=== PATIENT | female | born 1950 | race Caucasian/White ===

== ENCOUNTER → 2018-07-09 10:31 | Outpatient (CLI) | payer BC, SELFPAY ==
[2018-07-09 11:50] LABS: Basophils % 0.6 % (0.1-2.0); Eosinophils # 0.1 K/mm3 (0.0-0.4); Hemoglobin 15.8 g/dL (12.2-16.2); Lymphocytes # 2.1 K/mm3 (0.7-4.5); Lymphocytes % 38.9 K/mm3 (10-50); Mean Corpuscular HGB Conc 33.6 g/dL (31.8-35.4); Mean Corpuscular Hemoglobin 30.3 pg (27.0-31.2); Mean Platelet Volume 8.1 fl (7.4-10.4); Monocytes # 0.3 K/mm3 (0.1-1.0); Monocytes % 5.3 % (1.7-9.3); Neutrophils # 2.9 K/mm3 (1.8-7.8); Neutrophils % 54.2 % (37.0-80.0); Platelet Count 185 K/mm3 (142-424); Red Blood Count 5.22 M/mm3 (4.20-5.40); Red Cell Distribution Width 12.7 % (11.5-17.5); White Blood Count 5.3 K/mm3 (4.8-10.8)
[2018-07-09 12:29] LABS: Alanine Aminotransferase 35 U/L (12-78); Albumin Level 4.4 gm/dL (3.4-5.0); Albumin/Globulin Ratio 1.5 (1.1-1.8); Alkaline Phosphatase 76 U/L (46-116); Anion Gap 14.5 mEq/L (5-15); Aspartate Amino Transferase 19 U/L (15-37); Bilirubin,Total 0.6 mg/dL (0.2-1.0); Blood Urea Nitrogen 15 mg/dL (7-18); Calcium 9.8 mg/dL (8.5-10.1); Carbon Dioxide 29 mmol/L (21.0-32.0); Chloride 103 mmol/L (98-107); Chol/HDL Ratio 4.8 (1-3.5); Cholesterol 203 mg/dL (140-200); Estimated Glomerular Filt Rate 72 ml/min (>60); GFR (African American) 87 ML/MIN (>60); Globulin 2.9 gm/dl (1.3-3.2); Glucose 96 mg/dL (74-106); HDL Cholesterol 42 mg/dL (29-89); LDL Cholesterol 112 mg/dL (0-130); Potassium 4.5 mmoL/L (3.5-5.1); Sodium 142 mmol/L (136-145); Total Protein,Serum 7.3 gm/dL (6.4-8.2); Triglycerides 247 mg/dL (30-200); VLDL Cholesterol 49 mg/dL (0-40)
== END ==
PROVIDERS: PCP Internal Medicine Adolescent Medicine; Visit Provider Internal Medicine Adolescent Medicine
DX: E78.5 Hyperlipidemia, unspecified (principal); J43.1 Panlobular emphysema
CPT/HCPCS: 36415; 80053; 80061; 85025

== ENCOUNTER → 2018-07-15 09:42 | Outpatient (CLI) | payer BC, SELFPAY ==
--- NOTE | 2018-07-15 09:47 | XR_ITS ---
XR DEXA axial skeleton HISTORY: ITS.REASON: MENOPAUSAL ORDERING PHYSICIAN: Perez Christianson MD PATIENT AGE: 68 years COMPARISON: None FINDINGS: The BMD measured at the AP Spine L1-L4 is 0.869 g/cm squared with a T score of -2.6. This is considered Osteoporotic according to the World Health Organization criteria. Fracture risk is High. Treatment is advised. Mean hip density has a T score of -2.4 IMPRESSION: Osteoporosis with high fracture risk. Recommend treatment and follow-up exam in one year to monitor response to treatment
--- NOTE | 2018-07-15 09:47 | MM_ITS ---
MM Dig screening mamm BI w/CAD CAD Screening COMPARISON: Digital mammograms 08/23/2015 and 11/20/2016 INDICATION: There is a history of breast cancer patient's aunt. This been previous biopsy right breast for benign disease. TECHNIQUE: Standard CC and MLO images were obtained. R2 CAD reviewed. FINDINGS: Scattered fibro glandular densities are seen throughout both breasts. There are stable tiny nodular densities left breast, there is a biopsy clip right breast. There is a benign-appearing calcification right breast. There is no suspicious lesion and no suspicious microcalcifications. IMPRESSION: Fibrofatty parenchyma with no suspicious lesion seen BI-RADS Category: 2 Benign Finding(s) RECOMMENDED FOLLOW-UP: 1YR - 1 YEAR FOLLOW-UP (A letter has been sent to the patient regarding results of the study.)
== END ==
PROVIDERS: Family Provider Internal Medicine Adolescent Medicine; PCP Internal Medicine Adolescent Medicine; Visit Provider Internal Medicine Adolescent Medicine
DX: Z12.31 Encounter for screening mammogram for malignant neoplasm of breast (principal); Z13.820 Encounter for screening for osteoporosis; Z78.0 Asymptomatic menopausal state
CPT/HCPCS: 77067; 77080

== ENCOUNTER 2018-08-03 09:54 | Outpatient (CLI) | payer BC, SELFPAY ==
[2018-08-03 10:00] VITALS: BP 137/79; PULSE 61; RESP 18; TEMP 36.6; O2SAT 98
[2019-01-31 09:57] VITALS: BMI 23.3
== END 2018-08-03 10:30 | disposition home or self-care (01) ==
LOC: INF 09:54
PROVIDERS: Family Provider Internal Medicine Adolescent Medicine; PCP Internal Medicine Adolescent Medicine; Visit Provider Internal Medicine Adolescent Medicine
DX: M81.0 Age-related osteoporosis without current pathological fracture (principal)
CPT/HCPCS: 96372; J0897

== ENCOUNTER 2019-02-24 10:48 | Outpatient (CLI) | payer MEDICARE, SELFPAY ==
[2019-02-24 11:10] VITALS: BP 143/77; PULSE 63; RESP 18; TEMP 36.6; O2SAT 99
== END 2019-02-24 11:30 | disposition home or self-care (01) ==
LOC: INF 10:50
PROVIDERS: PCP Internal Medicine Adolescent Medicine; Visit Provider Internal Medicine Adolescent Medicine
DX: M81.0 Age-related osteoporosis without current pathological fracture (principal)
CPT/HCPCS: 96372; J0897

== ENCOUNTER → 2019-05-11 12:12 | Outpatient (CLI) | payer MEDICARE, SELFPAY ==
[2019-05-11 12:32] LABS: Basophils % 0.6 % (0.1-2.0); Eosinophils # 0.1 K/mm3 (0.0-0.4); Eosinophils % 0.8 % (0.1-12.0); Hematocrit 50.3 % (37.0-47.0); Hemoglobin 15.9 g/dL (12.2-16.2); Lymphocytes # 2.8 K/mm3 (0.7-4.5); Lymphocytes % 38.5 % (10-50); Mean Corpuscular HGB Conc 31.5 g/dL (31.8-35.4); Mean Corpuscular Hemoglobin 29.7 pg (27.0-31.2); Mean Corpuscular Volume 94.3 fl (81-99); Mean Platelet Volume 8.4 fl (7.4-10.4); Monocytes # 0.3 K/mm3 (0.1-1.0); Monocytes % 4.5 % (1.7-9.3); Neutrophils % 55.6 % (37.0-80.0); Platelet Count 228 K/mm3 (142-424); Red Blood Count 5.33 M/mm3 (4.20-5.40); Red Cell Distribution Width 13.5 % (11.5-17.5); White Blood Count 7.2 K/mm3 (4.8-10.8)
[2019-05-11 14:36] LABS: Alanine Aminotransferase 38 U/L (12-78); Albumin Level 4.6 gm/dL (3.4-5.0); Albumin/Globulin Ratio 1.5 (1.1-1.8); Alkaline Phosphatase 69 U/L (46-116); Anion Gap 17.7 mEq/L (5-15); Aspartate Amino Transferase 22 U/L (15-37); Bilirubin,Total 0.6 mg/dL (0.2-1.0); Blood Urea Nitrogen 14 mg/dL (7-18); Calcium 9.9 mg/dL (8.5-10.1); Carbon Dioxide 27 mmol/L (21.0-32.0); Chloride 101 mmol/L (98-107); Chol/HDL Ratio 4.4 (1-3.5); Cholesterol 215 mg/dL (140-200); Estimated Glomerular Filt Rate 83 ml/min (>60); GFR (African American) 101 ML/MIN (>60); Globulin 3.1 gm/dl (1.3-3.2); Glucose 87 mg/dL (74-106); HDL Cholesterol 49 mg/dL (29-89); LDL Cholesterol 119 mg/dL (0-130); Potassium 4.7 mmoL/L (3.5-5.1); Sodium 141 mmol/L (136-145); Total Protein,Serum 7.7 gm/dL (6.4-8.2); Triglycerides 234 mg/dL (30-200); VLDL Cholesterol 47 mg/dL (0-40)
== END ==
PROVIDERS: Visit Provider Internal Medicine Adolescent Medicine
DX: E78.5 Hyperlipidemia, unspecified (principal); F44.1 Dissociative fugue
CPT/HCPCS: 36415; 80053; 80061; 85025

== ENCOUNTER 2019-08-30 09:58 | Outpatient (CLI) | payer MEDICARE, SELFPAY ==
[2019-08-30 09:55] VITALS: BP 160/80; PULSE 64; RESP 18
== END 2019-08-30 10:15 | disposition home or self-care (01) ==
LOC: INF 09:58
PROVIDERS: Visit Provider Internal Medicine Adolescent Medicine
DX: M81.0 Age-related osteoporosis without current pathological fracture (principal)
CPT/HCPCS: 96372; J0897

== ENCOUNTER → 2019-11-01 14:53 | Outpatient (POV) | payer MEDICARE, SELFPAY | PROVIDERS: Visit Provider Dermatology | DX: Z00.00 Encounter for general adult medical examination without abnormal findings (principal) ==

== ENCOUNTER → 2019-11-03 10:24 | Outpatient (CLI) | payer MEDICARE, SELFPAY ==
--- NOTE | 2019-11-03 10:28 | CT_ITS ---
PROCEDURE: CT LUNG SCREENING CLINICAL INDICATION: HX OF NICOTINE DEPENDENCE COMPARISON: No exams were available for comparison TECHNIQUE: The exam was performed on a [employer] Light Speed [address] scanner using 2.90 mGy CTDI. A low dose helical CT CHEST was performed on a multi-detector scanner. All CT scans at the facility use one or more dose reduction, viz: automated exposure control, ma/kV adjustment per patient size (including targeted exams where dose is matched to indication, i.e. head), or iterative reconstruction technique. The LDCT was performed in a facility that meets the criteria for the screening program. Data regarding this exam was submitted to ACR which is an approved registry. The order for this exam indicates that it came as a result of a lung cancer screening counseling shard decision-making visit that included all the elements required of such a visit including smoking cessation. The radiologist interpreting this exam meets the CMS criteria for the LDCT lung cancer screening program. The exam is reported using the Lung-RADS classification scale and reported to the ACR registry. NOTE: This study was performed for the specific purposes of lung cancer screening and is not an alternative to diagnostic chest CT. RADIATION DOSE: CTDI vol(CT dose Index-volume) = 2.90mG DLP (Dose Length Product) = 98.73 mGcm FINDINGS: 6 mm nodules present in the left apex. This may contain some minimal central calcification. Six-month follow-up suggested. OTHER FINDINGS: Centrilobular emphysema. Old granulomatous disease. Coronary artery calcification. Cholelithiasis IMPRESSION: Lung rads category 3 probably benign. Recommend six-month CT follow-up Dictated by: Ramsey Ramirez MD 11/09/2019 09:09 Electronically signed by Ramsey Ramirez MD in [place] 11/09/2019 09:11
--- NOTE | 2019-11-03 10:29 | MM_ITS ---
PROCEDURE: MM DIG SCREENING MAMM BI W/CAD Patient Age:69Y CLINICAL INDICATION: SCREENING 69-year-old. No hormones but no new complaints.. Benign stereotactic biopsy deep right breast. Family history paternal aunt with breast cancer COMPARISON: [facility] from 05/04/2014 [facility] from 08/23/2015 [facility] W/CAD from 11/20/2016 [facility] MM Dig screening mamm BI w/CAD from 07/15/2018 TECHNIQUE: Standard CC and MLO images were obtained. R2 CAD reviewed. FINDINGS: Low-density breast to less fatty replacement with no significant or suspicious new areas of concern either breast. CAD highlights no new areas of concern either.. Right breast. No new areas of concern Previous biopsy deep axillary right breast a small metallic marker here. With stable small ovoid lymph node just anterior to the biopsy clip at upper-outer quadrant right breast again observed Left breast: No changes. Again a stable small intramammary node at the far lateral left breast is noted. IMPRESSION: Stable bilateral mammogram with no significant new findings. Bilateral follow-up 1 year. BI-RAD Category: 2 Benign Finding(s) FOLLOW-UP: 1YR 1 Year Follow-up the (A letter has been sent to the patient regarding results of the study.) Dictated by: Cooper Pond MD 11/04/2019 08:44 Electronically signed by Cooper Pond MD in [place] 11/04/2019 08:44
== END ==
PROVIDERS: PCP Internal Medicine Adolescent Medicine; Visit Provider Internal Medicine Adolescent Medicine
DX: Z87.891 Personal history of nicotine dependence (principal); Z12.2 Encounter for screening for malignant neoplasm of respiratory organs; Z12.31 Encounter for screening mammogram for malignant neoplasm of breast
CPT/HCPCS: 77067

== ENCOUNTER 2020-02-29 09:50 | Outpatient (CLI) | payer MEDICARE, SELFPAY ==
[2020-02-29 10:25] VITALS: BP 154/73; PULSE 68; RESP 18; TEMP 36.6; O2SAT 99
== END 2020-02-29 10:40 | disposition home or self-care (01) ==
LOC: INF 09:58
PROVIDERS: Visit Provider Internal Medicine Adolescent Medicine
DX: M81.0 Age-related osteoporosis without current pathological fracture (principal); Z92.29 Personal history of other drug therapy
CPT/HCPCS: 96372; J0897

== ENCOUNTER 2020-03-12 10:47 | Emergency (ER) | payer MEDICARE, SELFPAY ==
[2020-03-12 10:48] VITALS: BP 166/81; PULSE 72; RESP 20; TEMP 36.8; O2SAT 99; BMI 23.2
--- NOTE | 2020-03-12 11:02 | HMH.EDGENADL ---
ED Disposition Clinical Impression: Dyspepsia Disposition: Home, Self-Care Condition on Discharge: Good Instructions: DI for Gastroesophageal Reflux Disease (GERD), DI for Gastritis Prescriptions: Sucralfate [Carafate 1gm/10mL Susp] 1 gm PO QID 7 Days udc Prescription Printed Referrals: Perez Christianson MD [Primary Care Provider] - 3 days - Critical Care Critical Care Time: No Attestation: On 03/12/20, the high probability of a clinically significant, sudden or life threatening deterioration of the following system(s) required my full and direct attention, intervention and personal management. The time I documented below is in addition to time spent performing reported procedures but includes the following listed in this critical care notation. Medical Decision Making - Medical Records Medical records reviewed: Yes: I reviewed the patient's medical records. - Carlos Inquiry Pt receiving controlled substance: No Vital Signs: 03/12/20 10:48 03/12/20 11:30 Temperature 98.3 F Temperature Source Oral Pulse Rate [Right] 72 62 Respiratory Rate 20 20 Blood Pressure [Right Arm] 166/81 H 158/88 H Blood Pressure Mean [Right Arm] 109 111 Blood Pressure Source [Right Arm] Automatic Cuff Blood Pressure Position [Right Arm] Supine 02 Sat by Pulse Oximetry 99 96 Oxygen Delivery Method Room Air - Lab Data Lab Results 03/12/20 11:15: WBC 10.9 H, RBC 5.36, Hgb 16.2, Hct 49.2 H, MCV 91.8, MCH 30.3, MCHC 33.0, RDW 13.0, Plt Count 241, MPV 8.2, Neut % (Auto) 75.3, Lymph % (Auto) 18.3, [place] % (Auto) 5.5, Eos % (Auto) 0.2, Baso % (Auto) 0.6, Neut # (Auto) 8.2 H, Lymph # (Auto) 2.0, [place] # (Auto) 0.6, Eos # (Auto) 0.0, Baso # (Auto) 0.1 03/12/20 11:15: Lipase 70 03/12/20 11:15: Sodium 140, Potassium 3.3 L, Chloride 102, Carbon Dioxide 27, Anion Gap 14.3, BUN 10, Creatinine 0.60, Estimated Creat Clear 51, Estimated GFR 99, Est GFR ( Amer) 120, Glucose 129 H, Calcium 9.9, Total Bilirubin 0.7, AST 36, ALT 33, Alkaline Phosphatase 66, Troponin I < 0.01, Total Protein 8.1, Albumin 4.9, Globulin 3.2, Albumin/Globulin Ratio 1.5 Result diagrams: 03/12/20 11:15 03/12/20 11:15 Orders (Tests/Meds): ED MEDICATIONS Generic Name Dose Route Start Last Admin Trade Name Freq PRN Reason Stop Dose Admin Sodium Chloride 1,000 mls @ 999 mls/hr 03/12/20 11:00 03/12/20 11:17 Sod Chlor 0.9% 1000ml Bag IV 03/12/20 12:00 999 mls/hr .Q1H1M KIKA Administration Discontinued Medications Generic Name Dose Route Start Last Admin Trade Name Freq PRN Reason Stop Dose Admin Belladonna Alkaloids 60 ml 03/12/20 11:04 03/12/20 11:17 Gi Cocktail 60ml Udc PO 03/12/20 11:05 60 ml ONCE ONE Administration Ondansetron HCl 4 mg 03/12/20 10:55 03/12/20 11:17 Zofran 4mg/2ml Vial IV 03/12/20 10:56 4 mg ONCE ONE Administration ORDERS Category Date Time Status Troponin I Q3H Lab 03/12/20 14:15 Ordered Troponin I Q3H Lab 03/12/20 17:15 Ordered Urinalysis and Microscopic Stat Lab 03/12/20 10:55 Ordered - ECG Data Tracing #1 G at 1111 shows a sinus rhythm with a rate of 69. No acute ST segment elevation or depression. Intraventricular conduction delay, right bundle branch block. Normal QTC and MD. EKG interpreted by me. Medical Decision Narrative: She is feeling much better after GI cocktail. Patient has no vomiting here. She has labs that are reassuring with no signs of biliary obstruction, pancreatitis. EKG and troponin would not suggest ACS and patient has no chest pain. She has had GERD pain like this before and I suspect that this is the cause now, or possibly gastritis as she is not taking famotidine as prescribed. I recommended taking her famotidine as prescribed and will prescribe Carafate as well for a week in the event that this helps her. Follow-up with primary care provider in 2 to 3 days for reevaluation. No urinary symptoms, unlikely UTI. No change in bowel habits, u
--- NOTE | 2020-03-12 11:11 | ECG_ITS ---
APPROVED REPORT Exam: Resting ECG HR:69 bpm ECG Measurements Heart Rate 69 AXES QRSd 134 QRS 66 QT 420 T -4 QTc 450 <Conclusion> Sinus rhythm with First Degree AV Block-NM 380ms Right bundle branch block Motion artifact Abnormal ECG Electronically signed by : Hermelindo Wellington, 03/13/2020 14:39:39
[2020-03-12 11:25] LABS: Basophils # 0.1 K/mm3 (0-0.2); Basophils % 0.6 % (0.1-2.0); Eosinophils % 0.2 % (0.1-12.0); Hematocrit 49.2 % (37.0-47.0); Hemoglobin 16.2 g/dL (12.2-16.2); Lymphocytes % 18.3 % (10-50); Mean Corpuscular Hemoglobin 30.3 pg (27.0-31.2); Mean Corpuscular Volume 91.8 fl (81-99); Mean Platelet Volume 8.2 fl (7.4-10.4); Monocytes # 0.6 K/mm3 (0.1-1.0); Monocytes % 5.5 % (1.7-9.3); Neutrophils # 8.2 K/mm3 (1.8-7.8); Neutrophils % 75.3 % (37.0-80.0); Platelet Count 241 K/mm3 (142-424); Red Blood Count 5.36 M/mm3 (4.20-5.40); White Blood Count 10.9 K/mm3 (4.8-10.8)
[2020-03-12 11:30] VITALS: BP 158/88; PULSE 62; RESP 20; O2SAT 96
[2020-03-12 11:34] LABS: Chloride 102 mmol/L (98-107); Potassium 3.3 mmoL/L (3.5-5.1); Sodium 140 mmol/L (136-145)
[2020-03-12 11:36] LABS: Alanine Aminotransferase 33 U/L (12-78); Alkaline Phosphatase 66 U/L (38-126); Aspartate Amino Transferase 36 U/L (14-36); Bilirubin,Total 0.7 mg/dl (0.2-1.3); Blood Urea Nitrogen 10 mg/dl (7-17); Creatinine Clearance Estimated 51 mL/min (50-200); Estimated Glomerular Filt Rate 99 ml/min (>60); GFR (African American) 120 ML/MIN (>60); Lipase 70 U/L (23-300)
[2020-03-12 11:37] LABS: Albumin Level 4.9 g/dl (3.5-5.0); Albumin/Globulin Ratio 1.5 (1.1-1.8); Anion Gap 14.3 mEq/L (5-15); Calcium 9.9 mg/dl (8.4-10.2); Carbon Dioxide 27 mmol/L (22.0-30.0); Globulin 3.2 g/dL (1.3-3.2); Glucose 129 mg/dl (74-100); Total Protein,Serum 8.1 g/dl (6.3-8.2)
[2020-03-12 11:54] LABS: Troponin I < 0.01 ng/ml (0.00-0.034)
[2020-03-12 12:00] VITALS: BP 169/78; PULSE 90; RESP 22; O2SAT 94
[2020-03-12 12:23] VITALS: BP 165/85; PULSE 87; RESP 20; TEMP 36.8; O2SAT 98
== END 2020-03-12 12:25 | disposition home or self-care (01) ==
PROVIDERS: Emergency Provider Emergency Medicine; PCP Internal Medicine Adolescent Medicine
DX: R10.13 Epigastric pain (principal); K21.9 Gastro-esophageal reflux disease without esophagitis; E78.5 Hyperlipidemia, unspecified; F17.210 Nicotine dependence, cigarettes, uncomplicated; I25.10 Atherosclerotic heart disease of native coronary artery without angina pectoris; Z90.79 Acquired absence of other genital organ(s)
CPT/HCPCS: 80053; 83690; 84484; 85025; 93005; 96365; 96375; 99284; J2405

== ENCOUNTER 2020-08-31 14:05 | Outpatient (CLI) | payer MEDICARE, SELFPAY ==
[2020-08-31 14:20] VITALS: BP 139/66; PULSE 71; RESP 18; O2SAT 97
== END 2020-08-31 14:35 | disposition home or self-care (01) ==
LOC: INF 14:14
PROVIDERS: Visit Provider Internal Medicine Adolescent Medicine
DX: M81.0 Age-related osteoporosis without current pathological fracture (principal); Z92.29 Personal history of other drug therapy
CPT/HCPCS: 96372; J0897

== ENCOUNTER → 2021-02-04 11:36 | Outpatient (CLI) | payer MEDICARE, SELFPAY ==
[2021-02-04 12:15] LABS: Basophils # 0.1 K/mm3 (0-0.2); Basophils % 1.2 % (0.1-2.0); Eosinophils # 0.1 K/mm3 (0.0-0.4); Eosinophils % 1.4 % (0.1-12.0); Hematocrit 50.8 % (37.0-47.0); Hemoglobin 16.4 g/dL (12.2-16.2); Lymphocytes # 2.7 K/mm3 (0.7-4.5); Lymphocytes % 42.9 % (10-50); Mean Corpuscular HGB Conc 32.3 g/dL (31.8-35.4); Mean Corpuscular Hemoglobin 29.8 pg (27.0-31.2); Mean Corpuscular Volume 92.3 fl (81-99); Mean Platelet Volume 8.2 fl (7.4-10.4); Monocytes # 0.4 K/mm3 (0.1-1.0); Monocytes % 5.6 % (1.7-9.3); Neutrophils # 3.1 K/mm3 (1.8-7.8); Neutrophils % 48.9 % (37.0-80.0); Platelet Count 222 K/mm3 (142-424); Red Cell Distribution Width 13.3 % (11.5-17.5); White Blood Count 6.3 K/mm3 (4.8-10.8)
[2021-02-04 12:34] LABS: Chloride 107 mmol/L (98-107); Potassium 5.4 mmoL/L (3.5-5.1); Sodium 141 mmol/L (136-145)
[2021-02-04 12:36] LABS: Blood Urea Nitrogen 14 mg/dl (7-17); Estimated Glomerular Filt Rate 83 ml/min (>60); GFR (African American) 101 ML/MIN (>60)
[2021-02-04 12:37] LABS: Alanine Aminotransferase 38 U/L (12-78); Albumin Level 5.5 g/dl (3.5-5.0); Albumin/Globulin Ratio 2.2 (1.1-1.8); Alkaline Phosphatase 66 U/L (38-126); Anion Gap 11.4 mEq/L (5-15); Aspartate Amino Transferase 39 U/L (14-36); Bilirubin,Total 0.8 mg/dl (0.2-1.3); Calcium 10.6 mg/dl (8.4-10.2); Carbon Dioxide 28 mmol/L (22.0-30.0); Chol/HDL Ratio 4.8 (1-3.5); Cholesterol 243 mg/dl (140-200); Globulin 2.5 g/dL (1.3-3.2); Glucose 106 mg/dl (74-100); HDL Cholesterol 51 mg/dl (40-60); Triglycerides 387 mg/dl (30-150); VLDL Cholesterol 77 mg/dL (0-40)
[2021-02-04 12:49] LABS: Direct LDL Cholesterol 134.68 mg/dL (100-129)
== END ==
PROVIDERS: Visit Provider Internal Medicine Adolescent Medicine
DX: E78.5 Hyperlipidemia, unspecified (principal); J43.1 Panlobular emphysema
CPT/HCPCS: 36415; 80053; 80061; 85025

== ENCOUNTER → 2021-02-08 10:14 | Outpatient (CLI) | payer MEDICARE, SELFPAY ==
--- NOTE | 2021-02-08 10:17 | MM_ITS ---
PROCEDURE: MM DIG SCREENING MAMM BI W/CAD Digital Breast Tomosynthesis Included CLINICAL INDICATION: SCREENING COMPARISON: [facility] MM Dig screening mamm BI w/CAD from 07/15/2018 MG MM DIG SCREENING MAMM BI W/CAD from 11/03/2019 TECHNIQUE: Standard CC and MLO images and 3D Tomosynthesis was obtained. R2 CAD reviewed. FINDINGS: The breasts are composed of scattered fibroglandular tissue. Bilateral intramammary lymph nodes are noted. Axillary lymph nodes are noted. Stereotactic biopsy marker in the right breast. Mole markers are noted bilaterally. No dominant mass lesion, suspicious calcification or architectural distortion noted IMPRESSION: No suspicious findings. BI-RAD Category: 2 Benign Finding(s) FOLLOW-UP: 1YR 1 Year Follow-up if no clinically palpable abnormality. (A letter has been sent to the patient regarding results of the study.) Dictated by: Claudine Wilson 02/15/2021 13:37 Claudine Wilson in [place] 02/15/2021 13:37
== END ==
PROVIDERS: PCP Internal Medicine Adolescent Medicine; Visit Provider Internal Medicine Adolescent Medicine
DX: Z12.31 Encounter for screening mammogram for malignant neoplasm of breast (principal)
CPT/HCPCS: 77063; 77067

== ENCOUNTER → 2021-02-15 08:11 | Outpatient (CLI) | payer MEDICARE, SELFPAY ==
--- NOTE | 2021-02-15 08:14 | CT_ITS ---
PROCEDURE: CT LUNG SCREENING CLINICAL INDICATION: H/O NICOTINE DEPENDENCE COMPARISON: CR XR HAND LT MIN 3V from 08/11/[address] LUNG SCREENING from 11/03/2019 TECHNIQUE: The exam was performed on a [employer] Light Speed [address] scanner using 2.90 mGy CTDI. A low dose helical CT CHEST was performed on a multi-detector scanner. All CT scans at the facility use one or more dose reduction, viz: automated exposure control, ma/kV adjustment per patient size (including targeted exams where dose is matched to indication, i.e. head), or iterative reconstruction technique. The LDCT was performed in a facility that meets the criteria for the screening program. Data regarding this exam was submitted to ACR which is an approved registry. The order for this exam indicates that it came as a result of a lung cancer screening counseling shard decision-making visit that included all the elements required of such a visit including smoking cessation. The radiologist interpreting this exam meets the CMS criteria for the LDCT lung cancer screening program. The exam is reported using the Lung-RADS classification scale and reported to the ACR registry. NOTE: This study was performed for the specific purposes of lung cancer screening and is not an alternative to diagnostic chest CT. RADIATION DOSE: CTDI vol(CT dose Index-volume) = 2.90mG DLP (Dose Length Product) = mGcm FINDINGS: 5 millimeter nodule is noted in the left upper lobe, unchanged. Minor subpleural nodularity is noted in the left lower lobe without evidence of focal nodules. There is minor subpleural nodularity noted in the right middle lobe adjacent to the minor fissure, unchanged. Calcified granulomas are noted. Centrilobular emphysematous changes are noted bilaterally. The central tracheobronchial tree is patent. No new focal lung nodules. The heart size is normal. No pericardial effusions. Atherosclerotic vascular calcification of the thoracic aorta and the coronary arteries are noted. Few scattered mediastinal lymph nodes, not significant by size criteria. Calcified grand lymph nodes noted in the right hilum. Calcified gallstones are noted. No pericholecystic fluid or gallbladder wall thickening. Multiple calcifications in the liver and spleen which may be secondary to prior granulomatous disease. Bulky bilateral adrenal glands, may represent adrenal hyperplasia. This is unchanged compared to the study a prior study. Focal heterogeneous density of the right kidney is noted, incompletely evaluated on the current unenhanced low-dose CT. Minor degenerative changes of the visualized thoracic spine. The visualized thyroid gland is unremarkable. IMPRESSION: Lung-RADS Category 2 Benign Appearance or Behavior Follow-up: Follow-up as clinically indicated. No follow-up is recommended as per modified Fleischner criteria. Focal hypodensity in the right kidney is noted, incompletely evaluated and visualized on the current study. Ultrasound of the kidneys is recommended for further evaluation in the 1st instance. Calcified gallstones. Dictated by: Claudine Wilson 02/15/2021 11:50 Claudine Wilson in [place] 02/15/2021 11:50
--- NOTE | 2021-02-15 08:15 | XR_ITS ---
PROCEDURE: XR DEXA AXIAL SKELETON CLINICAL HISTORY: OSTEOPOROSIS COMPARISON: CR DEXAAX XR DEXA axial skeleton from 07/15/2018 FINDINGS: The right hip BMD is 0.756 grams/centimeter square with a T-score of -1.5. The left hip BMD is 0.692 grams/centimeter square with a T-score of -2.0. The lumbar spine BMD is 0.942 grams/centimeters square with a T-score of -1.0. IMPRESSION: This patient is considered osteopenic according to the World Health Organization criteria. Bone density is between 10 and 25 percent below young normal. Fracture risk is moderate. Treatment is advised. Based on these results a follow-up exam is recommended in 2 year. Dictated by: Claudine Wilson 02/15/2021 16:53 Claudine Wilson in [place] 02/15/2021 16:53
== END ==
PROVIDERS: PCP Internal Medicine Adolescent Medicine; Visit Provider Internal Medicine Adolescent Medicine
DX: Z87.891 Personal history of nicotine dependence (principal); Z12.2 Encounter for screening for malignant neoplasm of respiratory organs; M81.0 Age-related osteoporosis without current pathological fracture
CPT/HCPCS: 71271; 77080

== ENCOUNTER 2021-03-01 09:55 | Outpatient (CLI) | payer MEDICARE, SELFPAY ==
[2021-03-01 10:10] VITALS: BP 147/75; PULSE 64; RESP 18; TEMP 36.8; O2SAT 98
== END 2021-03-01 10:25 | disposition home or self-care (01) ==
LOC: INF 09:59
PROVIDERS: PCP Internal Medicine Adolescent Medicine; Visit Provider Internal Medicine Adolescent Medicine
DX: M85.89 Other specified disorders of bone density and structure, multiple sites (principal)
CPT/HCPCS: 96372

== ENCOUNTER → 2021-07-02 09:17 | Outpatient (CLI) | payer MEDICARE, SELFPAY ==
[2021-07-02 10:47] LABS: Chloride 104 mmol/L (98-107); Potassium 5.1 mmoL/L (3.5-5.1); Sodium 142 mmol/L (136-145)
[2021-07-02 10:49] LABS: Alanine Aminotransferase 37 U/L (12-78); Alkaline Phosphatase 72 U/L (38-126); Aspartate Amino Transferase 41 U/L (14-36); Bilirubin,Total 0.6 mg/dl (0.2-1.3); Blood Urea Nitrogen 14 mg/dl (7-17); Estimated Glomerular Filt Rate 71 ml/min (>60); GFR (African American) 86 ML/MIN (>60)
[2021-07-02 10:50] LABS: Albumin/Globulin Ratio 2.1 (1.1-1.8); Anion Gap 13.1 mEq/L (5-15); Calcium 10.4 mg/dl (8.4-10.2); Carbon Dioxide 30 mmol/L (22.0-30.0); Chol/HDL Ratio 3.4 (1-3.5); Cholesterol 169 mg/dl (140-200); Globulin 2.4 g/dL (1.3-3.2); Glucose 120 mg/dl (74-100); HDL Cholesterol 50 mg/dl (40-60); Total Protein,Serum 7.4 g/dl (6.3-8.2); Triglycerides 223 mg/dl (30-150); VLDL Cholesterol 45 mg/dL (0-40)
[2021-07-02 11:01] LABS: Direct LDL Cholesterol 85.01 mg/dL (100-129)
[2021-07-02 11:23] LABS: Basophils # 0.1 K/mm3 (0-0.2); Basophils % 1.1 % (0.1-2.0); Eosinophils # 0.1 K/mm3 (0.0-0.4); Eosinophils % 2.4 % (0.1-12.0); Hematocrit 45.9 % (37.0-47.0); Hemoglobin 15.3 g/dL (12.2-16.2); Lymphocytes # 1.9 K/mm3 (0.7-4.5); Lymphocytes % 36.3 % (10-50); Mean Corpuscular HGB Conc 33.2 g/dL (31.8-35.4); Mean Corpuscular Hemoglobin 29.8 pg (27.0-31.2); Mean Corpuscular Volume 89.7 fl (81-99); Mean Platelet Volume 8.1 fl (7.4-10.4); Monocytes # 0.3 K/mm3 (0.1-1.0); Monocytes % 6.5 % (1.7-9.3); Neutrophils # 2.8 K/mm3 (1.8-7.8); Neutrophils % 53.8 % (37.0-80.0); Platelet Count 206 K/mm3 (142-424); Red Blood Count 5.12 M/mm3 (4.20-5.40); Red Cell Distribution Width 13.1 % (11.5-17.5); White Blood Count 5.3 K/mm3 (4.8-10.8)
== END ==
PROVIDERS: Visit Provider Internal Medicine Adolescent Medicine
DX: R03.0 Elevated blood-pressure reading, without diagnosis of hypertension (principal); E78.5 Hyperlipidemia, unspecified
CPT/HCPCS: 36415; 80053; 80061; 85025

== ENCOUNTER → 2021-07-16 10:22 | Outpatient (POV) | payer MEDICARE, SELFPAY | PROVIDERS: Visit Provider Dermatology | DX: Z00.00 Encounter for general adult medical examination without abnormal findings (principal) ==

== ENCOUNTER → 2021-08-13 10:50 | Outpatient (POV) | payer MEDICARE, SELFPAY | PROVIDERS: Visit Provider Dermatology | DX: Z00.00 Encounter for general adult medical examination without abnormal findings (principal) ==

== ENCOUNTER → 2021-09-03 13:04 | Outpatient (POV) | payer MEDICARE, SELFPAY | PROVIDERS: Visit Provider Dermatology | DX: Z00.00 Encounter for general adult medical examination without abnormal findings (principal) ==

== ENCOUNTER 2021-09-04 10:02 | Outpatient (CLI) | payer MEDICARE, SELFPAY ==
[2021-09-04 10:16] VITALS: BP 139/74; PULSE 62; RESP 18; TEMP 36.6; O2SAT 97
== END 2021-09-04 10:44 | disposition home or self-care (01) ==
LOC: INF 10:03
PROVIDERS: PCP Internal Medicine Adolescent Medicine; Visit Provider Internal Medicine Adolescent Medicine
DX: M81.0 Age-related osteoporosis without current pathological fracture (principal)
CPT/HCPCS: 96372; J0897

== ENCOUNTER → 2021-11-08 14:13 | Outpatient (CLI) | payer MEDICARE, SELFPAY | PROVIDERS: PCP Internal Medicine Adolescent Medicine; Visit Provider Nurse Practitioner Family | DX: U07.1 COVID-19 (principal) | CPT/HCPCS: C9803; U0003; U0005 ==

== ENCOUNTER 2021-11-10 10:12 | Outpatient (CLI) | payer MEDICARE, SELFPAY ==
[2021-11-10] VITALS (7 sets, daily range): BP systolic 139–164; BP diastolic 65–81; PULSE 57–95; RESP 18; O2SAT 95–99
== END 2021-11-10 13:00 | disposition home or self-care (01) ==
LOC: INF 10:12
PROVIDERS: PCP Internal Medicine Adolescent Medicine; Visit Provider Internal Medicine Adolescent Medicine
DX: U07.1 COVID-19 (principal); Z23 Encounter for immunization
CPT/HCPCS: 96365

== ENCOUNTER → 2021-12-17 14:23 | Outpatient (POV) | payer MEDICARE, SELFPAY | PROVIDERS: Visit Provider Dermatology | DX: Z00.00 Encounter for general adult medical examination without abnormal findings (principal) ==

== ENCOUNTER → 2022-01-28 12:58 | Outpatient (POV) | payer MEDICARE, SELFPAY | PROVIDERS: Visit Provider Dermatology | DX: Z00.00 Encounter for general adult medical examination without abnormal findings (principal) ==

== ENCOUNTER 2022-11-04 10:00 | Outpatient (RCR) | payer MEDICARE, SELFPAY ==
--- NOTE | 2022-10-24 12:42 | HMH.PTOPWND ---
Rehab Outpt Wound Evaluation Rehab OP Wound Evaluation Start: 10/24/22 12:32 Freq: Status: Active Protocol: Document 10/24/22 12:32 RAMONITA (Rec: 10/24/22 12:42 PHORNESHA [id number]) E-signed By Eric Drew, PT Subjective/History History History This is the initial PT eval for Christine Das 72 yowf who presents with R lateral ankle wound present x ~ 3 wks. She reports tailgate of a truck fell and scraped her leg with reulsting R LE erythema and tenderness shortly after. She was diagnosed with cellulitis and prescribed oral abx and mupirocin topical ointment. She reports less pain now, but remains somewhat tender to palpation in the agustín-wound skin. She reports PMH of HTN. Subjective Subjective Pt with 0/10 pain currently, does c/o mild itching in the agustín-wound area. 2/4 TTP noted to the anterior side of the wound with 1+ pitting edema also noted. Blanchable erythema noted ~2-3 cm in circumference around the wound . No calor noted this date. Wound Eval Wound Right Lateral Ankle Wound Type Abrasion Is This a Chronic Wound Yes Wound Length (cm) 5.0 Wound Width (cm) 1.8 Wound Depth (cm) 0.1 Wound Bed Appearance Eschar Percentage of Eschar (Black) (%) 100 Wound Margins Description Well Defined Surrounding Tissue Appearance Bright Red Edema Type Pitting Edema Degree 1+ Query Text:1+ Trace, Barely Detectable, Rebound 15-30 seconds 2+ Moderate, Slight Indentation, Rebound 10-20 seconds 3+ Deep, Deeper Indentation, Rebound > 30 seconds 4+ Very Deep, Rebound > 60 seconds Drainage Amount None Drainage Odor No Odor Wound Topical Solution/Irrigant Saline Irrigant Primary Dressing Composite Comment optifoam gentle border lite Wound Debridement Method Sharps,Gauze Wound Debridement Amount of Tissue Moderate Removed Wound Debridement Result Healthy Tissue Revealed, Necrotic Tissue Rem
== END 2022-11-04 10:05 | disposition home or self-care (01) ==
LOC: PT 10:00
PROVIDERS: PCP Internal Medicine Adolescent Medicine; Visit Provider Nurse Practitioner Family
DX: L03.115 Cellulitis of right lower limb (principal)
CPT/HCPCS: 97162; 97597

== ENCOUNTER → 2023-02-02 16:54 | Outpatient (CLI) | payer MEDICARE, SELFPAY ==
--- NOTE | 2023-02-02 17:01 | MM_ITS ---
PROCEDURE INFORMATION: Exam: MG Bilateral Screening 3D Mammography Exam date and time: 02/02/2023 4:51 PM Age: 72 years old Clinical indication: Screening mammogram TECHNIQUE: Imaging protocol: Bilateral Screening tomosynthesis and 2D mammography including computer-aided detection (CAD) when performed. COMPARISON: 1. MG MM DIG SCREENING MAMM BI W/CAD 02/08/2021 10:29 AM 2. MG MM DIG SCREENING MAMM BI W/CAD 11/03/2019 10:48 AM 3. MG [facility] MM Dig screening mamm BI w/CAD 07/15/2018 10:15 AM 4. MG [facility]M-SCRE[facility] W/CAD 11/20/2016 8:31 AM FINDINGS: MAMMOGRAPHY: Breast composition: There are scattered areas of fibroglandular density. Mass: 0.7 cm mass within the slightly upper inner anterior left breast should be further assessed with spot views in CC/MLO projection. Ultrasound should also be performed. Architectural distortion: No new or suspicious architectural distortion. Calcifications: No new or suspicious calcifications are present Asymmetric density: No new or suspicious asymmetric density is present Skin thickening: None. Axillary adenopathy: None. IMPRESSION: 0.7 cm mass within the slightly upper inner anterior left breast should be further assessed with spot views in CC/MLO projection. Ultrasound should also be performed. ASSESSMENT: BI-RADS category 0: Incomplete-need additional imaging evaluation
== END ==
PROVIDERS: PCP Internal Medicine Adolescent Medicine; Visit Provider Nurse Practitioner Family
DX: Z12.31 Encounter for screening mammogram for malignant neoplasm of breast (principal)
CPT/HCPCS: 77063; 77067

== ENCOUNTER → 2023-02-24 14:14 | Outpatient (CLI) | payer MEDICARE, SELFPAY ==
--- NOTE | 2023-02-24 14:19 | US_ITS ---
PROCEDURE INFORMATION: Exam: US Left Breast, Complete MG Left Diagnostic Breast Tomosynthesis Exam date and time: 02/24/2023 2:21 PM Age: 73 years old Clinical indication: Callback for additional assessment of 0.7 cm upper inner left breast mass identified on screening mammogram 02/02/2023 TECHNIQUE: Imaging protocol: Complete ultrasound of all four quadrants of the left breast and the retroareolar regions, including ultrasound of the axilla when performed. Left Diagnostic tomosynthesis and 2D mammography including computer-aided detection (CAD) when performed. Unilateral or bilateral exam. COMPARISON: 1. MG MM DIG SCREENING MAMM BI W/CAD 02/02/2023 4:51 PM 2. MG MM DIG SCREENING MAMM BI W/CAD 02/08/2021 10:29 AM 3. MG MM DIG SCREENING MAMM BI W/CAD 11/03/2019 10:48 AM 4. MG [facility] MM Dig screening mamm BI w/CAD 07/15/2018 10:15 AM FINDINGS: MAMMOGRAPHY: In the slightly upper slightly inner anterior left breast about 2.5 cm from the nipple there is a 0.7 cm circumscribed lobulated intermediate density mass. No associated architectural distortion or suspicious calcifications are present ULTRASOUND: In the region of mammographic interest, left 11 o'clock axis 2 cm from the nipple, there is a heterogeneously hypoechoic horizontally oriented mostly circumscribed 0.7 x 0.3 x 0.7 cm mass with posterior acoustic enhancement. This has probably benign features highly suggestive of a complicated cyst but remains mildly suspicious since it is mammographically new. No axillary adenopathy IMPRESSION: Six-month follow-up targeted left breast ultrasound is recommended to assure stability of a suspected 11 o'clock complicated cyst ASSESSMENT: BI-RADS category 3: Probably benign
== END ==
PROVIDERS: PCP Internal Medicine Adolescent Medicine; Visit Provider Nurse Practitioner Family
DX: R92.8 Other abnormal and inconclusive findings on diagnostic imaging of breast (principal)
CPT/HCPCS: 76641; 77061; 77065; G0279

== ENCOUNTER 2023-07-16 11:20 | Day surgery (SDC) | payer MEDICARE, SELFPAY ==
[2023-06-25 09:53] VITALS: BMI 24.3
--- NOTE | 2023-07-16 11:33 | P.PNANES_ITS ---
[facility] Disclaimer: The information contained in this section may have been updated after the patient was seen, as this information can be updated by other users. Medical History Cataract Surgical History History of colonoscopy History of hysterectomy History of tonsillectomy Hx of bladder repair surgery Family History Other Family history of arthritis Family history of cancer Family history of myocardial infarction Social History Smoking Status: Former smoker quit date: 05/15/20 alcohol intake: never substance use type: denies use current occupational status: retired Travel in the last 8 weeks: None household members: spouse housing: house lives independently: No marital status: education level: college service: No caffeine: Yes special maddi needs: No do you feel safe at home: Yes victim of physical abuse: No victim of emotional abuse: No victim of sexual abuse: No would you like helpful sources: No [facility] Anesthesia Checklist Patient Identification Patient Identification: Arm Band and Verbal (Name & ) Structural Data Admitted From: Home Planned Operative Procedure/s: colonoscopy Consent for Planned Operative Procedure(s) Verified: Yes Verified Documents: Surgical Consent NPO Status Verified Time NPO: 00:00 Airway Assessment Mallampati Score:: Class I C-Spine Mobility Assessed: Yes TMJ Mobility Assessed: Yes Dentition: Edentulous Neurological Assessment Level of Consciousness: Awake and Alert Hx Seizures: No Anesthesia Plan Anesthesia Risk discussed: Yes ASA Class: II Anesthesia Type: IV sedation
[2023-07-16 11:38] VITALS: BP 132/61; PULSE 68; RESP 18; TEMP 36.7; O2SAT 98
[2023-07-16 11:48] VITALS: O2SAT 98
--- NOTE | 2023-07-16 12:10 | HMH.SCOPE ---
Procedure: Date: 07/16/23 Patient Date of :: 1950 Procedure Performed:: Diagnostic colonoscopy Indications:: Chronic diarrhea, history of polyps Performing Provider:: Carolee Cardenas MD Referring Provider:: carrie Christianson MD Sedation:: Propofol Procedure:: After placing the patient in the left lateral decubitus position, the colonoscopy was gently inserted into the rectum and under direct visualization advanced to the cecum which was identified by transillumination in the right lower quadrant, identification of the ileocecal valve, appendiceal orifice, and cecal strap. Color, texture, mucosa, and anatomy of the colon were carefully examined with the scope. Findings:: Anal canal: normal Rectum: normal Sigmoid colon: normal without polyps or inflammatory changes, scattered diverticuli noted Descending colon: normal without polyps or inflammatory changes Splenic flexure: normal Transverse colon: normal without polyps or inflammatory changes Hepatic flexure: normal Ascending colon: normal without polyps or inflammatory changes Cecum: normal Terminal ileum: not visualized Impression: Scattered diverticulosis otherwise normal colonoscopy No evidence of inflammatory bowel disease Recommendations:: Follow up examination in about FIVE years or so, sooner if clinically indicated in view of history of polyps Complications:: None Estimated blood obtained (mL): 0 Colonoscopy Component Colonoscopy Component Was a colonoscopy performed during today's procedure?: Yes Recommended follow up colonoscopy of at least 10 years?: No If no, follow up colonoscopy recommended in ___ years?: Five Reason for not recommending >/= 10 yr follow-up interval?: As noted in report
[2023-07-16 12:12] VITALS: BP 97/56; PULSE 63; RESP 16; TEMP 36.3; O2SAT 94
--- NOTE | 2023-07-16 12:18 | SUR.PHASEII ---
EKG changes noted on monitor during procedure. V/O per M SPRING Poe for EKG to be obtained. Pt asymptomatic, resting. RT notified and order placed.
--- NOTE | 2023-07-16 12:20 | ECG_ITS ---
APPROVED REPORT Exam: Resting ECG HR:58 bpm ECG Measurements Heart Rate 58 AXES NH 243 P -53 QRSd 165 QRS 57 QT 479 T 32 QTc 476 Conclusion SINUS BRADYCARDIA WITH FIRST DEGREE AV BLOCK RIGHT BUNDLE BRANCH BLOCK [120+ ms QRS DURATION, UPRIGHT V1, 40+ ms S IN I/aVL/V4/V5/V6] ABNORMAL ECG UNCONFIRMED REPORT Electronically signed by : Perez Christianson MD 07/16/2023 18:30:54
[2023-07-16 12:22] VITALS: BP 104/56; PULSE 64; RESP 16; O2SAT 97
[2023-07-16 12:32] VITALS: BP 105/65; PULSE 70; RESP 16; O2SAT 99
[2023-07-16 12:42] VITALS: BP 106/67; PULSE 66; RESP 18; TEMP 36.6; O2SAT 99
== END 2023-07-16 12:45 | disposition home or self-care (01) ==
PROVIDERS: PCP Internal Medicine Adolescent Medicine; Visit Provider Internal Medicine Gastroenterology
PROC: 0DJD8ZZ Inspection of Lower Intestinal Tract, Via Natural or Artificial Opening Endoscopic (ICD-10-PCS; CPT 45378; principal; 2023-07-16 12:30)
DX: K57.30 Diverticulosis of large intestine without perforation or abscess without bleeding (principal); K52.9 Noninfective gastroenteritis and colitis, unspecified; Z86.010 Personal history of colon polyps
CPT/HCPCS: 45378; 93005

== ENCOUNTER → 2023-09-11 12:51 | Outpatient (CLI) | payer MEDICARE, SELFPAY ==
--- NOTE | 2023-09-11 12:56 | US_ITS ---
PROCEDURE INFORMATION: Exam: US Left Breast, Complete Exam date and time: 09/11/2023 1:08 PM Age: 73 years old Clinical indication: Short-term radiographic follow-up for a left breast mass TECHNIQUE: Imaging protocol: Complete ultrasound of all four quadrants of the left breast and the retroareolar regions, including ultrasound of the axilla when performed. COMPARISON: MG MM DIG MAMM DX UNILAT LT CAD 02/24/2023 2:21 PM FINDINGS: Breast: Sonographic images of the left breast including the retroareolar region, all 4 quadrants and the axilla demonstrates a stable hypoechoic ovoid mass in the 11 o'clock axis 2 cm from the nipple measuring 0.7 x 0.6 x 0.4 cm in dimension. Minimal internal architecture is suggestive of a septated or complicated cyst. No architectural distortion or acoustical shadowing. No skin thickening or axillary adenopathy. IMPRESSION: Stable probably benign mass in the left 11 o'clock axis compared to prior ultrasound dated 02/24/2023. A six-month follow-up targeted left breast ultrasound is recommended for continued close surveillance. The patient is also due at that time for annual bilateral mammographic screening. ASSESSMENT: BI-RADS Category 3: Probably benign
== END ==
PROVIDERS: PCP Internal Medicine Adolescent Medicine; Visit Provider Nurse Practitioner Family
DX: R92.8 Other abnormal and inconclusive findings on diagnostic imaging of breast (principal); N60.02 Solitary cyst of left breast
CPT/HCPCS: 76641

== ENCOUNTER 2024-03-14 13:19 | Outpatient (CLI) | payer MEDICARE, SELFPAY ==
--- NOTE | 2024-03-14 13:27 | MM_ITS ---
PROCEDURE INFORMATION: Exam: US Left Breast, Complete MG Bilateral Screening 3D Mammography Exam date and time: 03/14/2024 1:54 PM Age: 74 years old Clinical indication: Screening examination. Follow-up of a left breast mass TECHNIQUE: Imaging protocol: Complete ultrasound of all four quadrants of the left breast and the retroareolar regions, including ultrasound of the axilla when performed. Bilateral Screening tomosynthesis and 2D mammography including computer-aided detection (CAD) when performed. COMPARISON: US BREAST LT COMPLETE 09/11/2023 1:08 PM FINDINGS: MAMMOGRAPHY: Breast composition: There are scattered areas of fibroglandular density. Mass: None. Architectural distortion: None. Calcifications: None. Asymmetric density: None. Skin thickening: None. Axillary adenopathy: None. ULTRASOUND: Right solid masses: None. Right cystic masses: None. Right architectural distortion: None. Right acoustical shadowing: None. Right skin thickening: None. Right axillary adenopathy: None. Left solid masses: None. Left cystic masses: Left 11 o'clock axis 0.7 cm mass is consistent with a benign cyst. Additional subcentimeter cystic change measuring 0.6 cm is noted in the left 3 o'clock axis 4 cm from the nipple. Left architectural distortion: None. Left acoustical shadowing: None. Left skin thickening: None. Left axillary adenopathy: None. IMPRESSION: No mammographic or sonographic evidence of malignancy. Benign cystic change in the left breast. Annual screening is recommended unless otherwise clinically indicated. ASSESSMENT: BI-RADS Category 2: Benign.
== END 2024-03-14 23:59 | disposition home or self-care (01) ==
LOC: RAD 13:20
PROVIDERS: PCP Internal Medicine Adolescent Medicine; Visit Provider Nurse Practitioner Family
DX: Z12.31 Encounter for screening mammogram for malignant neoplasm of breast; N63.20 Unspecified lump in the left breast, unspecified quadrant; N60.02 Solitary cyst of left breast
CPT/HCPCS: 76641; 77063; 77067

== ENCOUNTER 2024-05-11 14:54 | Outpatient (CLI) | payer MEDICARE, SELFPAY ==
--- NOTE | 2024-05-11 14:59 | CT_ITS ---
FINAL REPORT TECHNIQUE: Axial CT images of the chest were obtained without contrast. Low-dose protocol was utilized. This study was performed with techniques to keep radiation doses as low as reasonably achievable (ALARA). Individualized dose reduction techniques using automated exposure control or adjustment of mA and/or kV according to the patient's size were employed. CLINICAL HISTORY: SCREENING, former smoker, quit 4-5 years ago, 1 / ppd, smoked for approximately 48 years COMPARISON: 02/15/2021 and 11/03/2019 FINDINGS: CT CHEST WITHOUT, LOW DOSE SCREENING CT Di Vol: 2.90 mGy DLP: 96.38 mGy*cm There are no enlarged lymph nodes. AP window lymph nodes measure up to 8 mm and are unchanged. There is a small hiatal hernia. The heart size is normal. There is no pleural or pericardial effusion. The lung windows show a spiculated nodule in the left upper lobe now measuring 16 x 13 mm and previously measured 4 mm on the 2018 and 2020 exams. Emphysema is noted. There is evidence of old calcified granulomatous disease. Limited images of the upper abdomen demonstrate cholelithiasis. IMPRESSION: Significant interval enlargement of left upper lobe nodule highly suspicious for neoplasm. LR Category 4B: Recommend CT surgery consultation with PET/CT. Reviewed, Interpreted and Dictated by Hanna Scruggs MD Transcribed by Priya Garcia Authenticated and [facility]
== END 2024-05-11 23:59 | disposition home or self-care (01) ==
LOC: RAD 14:55
PROVIDERS: PCP Internal Medicine Adolescent Medicine; Visit Provider Internal Medicine Adolescent Medicine
DX: Z87.891 Personal history of nicotine dependence (principal)
CPT/HCPCS: 71271

== ENCOUNTER 2024-06-01 15:16 | Outpatient (CLI) | payer MEDICARE, SELFPAY ==
--- NOTE | 2024-06-01 15:25 | XR_ITS ---
FINAL REPORT TECHNIQUE: Bone densitometry calculations of the lumbar spine and left hip were obtained. CLINICAL HISTORY: AGE RELATED OSTEOPOROSIS COMPARISON: None FINDINGS: Using L1-4, the bone mineral density of the spine is 0.930 g/cm2, corresponding to T-score of -1.1 and a Z score of 1.2. This is within the range of osteopenia, borderline. Using the left hip, the bone mineral density of the femoral neck is 0.575 g/cm2, corresponding to a T-score of -2.5 and a Z-score of -0.5. This is within the range of borderline osteoporosis. NOTE: T-score: Standard deviation compared with peak bone mass of young adult mean. *Following the recommendations of the International Society of Bone densitometry, classification of hip BMD is based on the lower of two T-scores; total hip or femoral neck. IMPRESSION: 1. Bone mineral density of the lumbar spine within the range of borderline osteopenia. 2. Bone mineral density of the left femoral neck within the range of borderline osteoporosis. Reviewed, Interpreted and Dictated by Phyllis Garcia MD Transcribed by Yadira Jack Authenticated and [facility]
== END 2024-06-01 23:59 | disposition home or self-care (01) ==
LOC: RAD 15:16
PROVIDERS: PCP Internal Medicine Adolescent Medicine; Visit Provider Internal Medicine Adolescent Medicine
DX: M81.0 Age-related osteoporosis without current pathological fracture (principal)
CPT/HCPCS: 77080

== ENCOUNTER 2025-02-23 08:52 | Outpatient (CLI) | payer MEDICARE, SELFPAY ==
--- NOTE | 2025-02-23 08:54 | US_ITS ---
FINAL REPORT TECHNIQUE: Multiple transverse and longitudinal images CLINICAL HISTORY: ELEVATED LIVER ENZYMES COMPARISON: None FINDINGS: The gallbladder shows a single gallstone, measuring 18 mm in diameter. No biliary ductal dilatation is appreciated. No fluid collections are seen. Limited portions of the right liver demonstrate fatty infiltration of the liver. Limited portions of the right kidney demonstrate a 23 mm right upper pole cyst. IMPRESSION: 1. Uncomplicated cholelithiasis. 2. No evidence of biliary obstruction 3. Fatty infiltration of the liver. Reviewed, Interpreted and Dictated by Hanna Scruggs MD Transcribed by Yadira Jack Authenticated and [facility]
--- OUTSIDE RECORDS SUMMARY | 2025-02-23 22:57 | XMS_ITS | Data Portability ---
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 2) Resolving edema (+) fabric bias improving 3) Mild adherence in zone 4-5 improving with active therapy [email or web address] Not available 11/30/2019 10:05:09 12/07/2019 12/07/2019 Pt has made significant progress with flexion, while maintaining functional PIP joint extension. Mild concerns with attenuation of the central slip (-) functional PIP extension. At this time, pt has met all therapy goals, and is rec'd to continue with extension splinting and functional use. [email or web address] Not available 12/07/2019 11:09:50 Plan of Treatment Reminders Order Date Submit Date Provider Last Modified By Organization Details Last Modified Time Details Appointments None record ed. Lab None record ed. Referral None record ed. Procedures None record ed. Surgeries None record ed. Imaging None record ed. Medication Orders None record ed. Patient TargetsNo targets recorded. Patient Instructions Encounter Date Encounter Id Patient Instructions Last Modified By Organization Details Last Modified Time 11/14/2019 [id number] STG 1) Improving functional AROM to within 80-90% of the unaffected within an appropriate time-frame from the injury/surgery. 2) Obtain intrinsic length with a PDC of < 1cm and within 80-90% of the unaffected in 3-4 weeks 3) To achieve 80-90% of functional research associate policy and pinch strength to maintain normal ADL function Rehab potential is Good [email or web address] Not available 11/14/2019 10:21:07 11/21/2019 [id number] STG 1) Improving functional AROM to within 80-90% of the unaffected within an appropriate time-frame from the injury/surgery. 2) Obtain intrinsic length with a PDC of < 1cm and within 80-90% of the unaffected in 3-4 weeks 3) To achieve 80-90% of functional research associate policy and pinch strength to maintain normal ADL function Rehab potential is Good [email or web address] Not available 11/21/2019 10:18:40 11/30/2019 [id number] STG 1) Improving functional AROM to within 80-90% of the unaffected within an appropriate time-frame from the injury/surgery. 2) Obtain intrinsic length with a PDC of < 1cm and within 80-90% of the unaffected in 3-4 weeks 3) To achieve 80-90% of functional research associate policy and pinch strength to maintain normal ADL function Rehab potential is Good [email or web address] Not available 11/30/2019 10:05:10 12/07/2019 [id number] STG 1) Improving functional AROM to within 80-90% of the unaffected within an appropriate time-frame from the injury/surgery. 2) Obtain intrinsic length with a PDC of < 1cm and within 80-90% of the unaffected in 3-4 weeks 3) To achieve 80-90% of functional research associate policy and pinch strength to maintain normal ADL function Rehab potential is Good [email or web address] Not available 12/07/2019 10:20:44 Reason for Referral None Reported. Results Created Date Observation Date Name Description Value Unit Range Abnormal Flag Note LastModifiedBy Organization Detail LastModifiedTime 11/02/20 19 11/02/2019 XR, hand, 3 or more view [facility] [address] [place] [address] Mo otoole Name: ELIZABETH otoole : 952 Mo otoole Orderi ng Provid er: JAZMIN Larose EXAM DATE: 2018 EXAM: XR LT HAND 3 VIEWS HISTOR Y: Follow up of fractu re. COMPAR VALENTINE: 019 FINDIN GS: Again seen is a commin uted fractu re of the shaft of the proxim al phalan x of the left fifth finger . This is unchan ged in alignm ent in compar valentine to the prior study. There is minima l displa cement . There are mild diffus e degene rative change s. No other fractu re is seen. IMPRES ESPERANZA: 1. There is unchan ged alignm ent of the fractu re of the proxim al phalan x of the left fifth finger . Interp reted By: Brenda gómez MD Electr onical ly Signed By: Brenda gómez MD on 2018 9:13 AM [id number] [facility] [place] [address], [place], [address], 05/22/2022 03:50:52 Result Notes None recorded. Problems No Known Problems Procedures Surgical History Date Name Laterality Status Provider Name and Address Organization Details Recorded Time 10/28/20 19 OT Manual Therapy completed CARLA SANTOS/Pal, CHT [address] [place], [address], [facility] 10/28/2019 10:42:20 10/25/20 19 Orthotic Management; Subsequent Encounter completed CARLA SANTOS/Pal, CHT [address] [place], [address], [facility] 10/25/2019 14:25:42 10/25/20 19 OT Manual Therapy completed CARLA SANTOS/Pal, CHT [address] [place], [address], [facility] 10/25/2019 14:25:45 10/25/20 19 PT Paraffin Bath completed ANIKA PÉREZ, OTR/L, CHT [address] [place], [address], [facility] 10/25/2019 14:04:35 10/10/20 19 OT Therapeutic Exercise completed ANIKA PÉREZ, OTR/L, CHT [address] [place], [address], [facility] 10/10/2019 10:55:01 10/10/20 19 OT Manual Therapy completed ANIKA PÉREZ, OTR/L, CHT [address] [place], [address], [facility] 10/10/2019 10:55:06 10/10/20 19 PT Iontophoresis completed ANIKA PÉREZ, OTR/L, CHT [address] [place], [address], [facility] 10/10/2019 09:42:54 10/10/20 19 PT Paraffin Bath completed ANIKA PÉREZ, OTR/L, CHT [address] [place], [address], [facility] 10/10/2019 09:42:54 10/03/20 19 OT Therapeutic Exercise completed ANIKA PÉREZ, OTR/L, CHT [address] [place], [address], [facility] 10/03/2019 11:50:14 10/03/20 19 OT Manual Therapy completed ANIKA PÉREZ, OTR/L, CHT [address] [place], [address], [facility] 10/03/2019 11:50:09 10/03/20 19 PT Iontophoresis completed ANIKA PÉREZ OTR/L, CHT [address] [place], [address], [facility] 10/03/2019 11:49:52 10/03/20 19 PT Paraffin Bath completed ANIKA PÉREZ, OTR/L, CHT [address] [place], [address], [facility] 10/03/2019 11:49:18 09/27/20 19 OT Therapeutic Exercise completed ANIKA PÉREZ, OTR/L, CHT [address] [place], [address], [facility] 09/27/2019 15:05:19 09/27/20 19 OT Manual Therapy completed ANIKA PÉREZ, OTR/L, CHT [address] [place], [address], [facility] 09/27/2019 15:05:24 09/27/20 19 PT Paraffin Bath completed ANIKA PÉREZ, OTR/L, CHT [address] [place], [address], [facility] 09/27/2019 13:40:50 09/21/20 19 OT Manual Therapy completed ANIKA PÉREZ, OTR/L, CHT [address] [place], [address], [facility] 09/21/2019 10:51:37 09/21/20 19 PT Paraffin Bath completed ANIKA PÉREZ, OTR/L, CHT [address] [place], [address], [facility] 09/21/2019 10:50:41 09/16/20 19 OT Therapeutic Exercise completed ANIKA PÉREZ, OTR/L, CHT [address] [place], [address], [facility] 09/16/2019 10:13:50 09/16/20 19 OT Manual Therapy completed ANIKA PÉREZ, OTR/L, CHT [address] [place], [address], [facility] 09/16/2019 08:48:50 09/16/20 19 PT Paraffin Bath completed ANIKA PÉREZ, OTR/L, CHT [address] [place], [address], [facility] 09/16/2019 08:48:50 09/12/20 19 Orthotic Management; Subsequent Encounter completed ANIKA PÉREZ, OTR/L, CHT [address] [place], [address], [facility] 09/12/2019 16:15:52 09/12/20 19 OT Therapeutic Exercise completed ANIKA PÉREZ, OTR/L, CHT [address] [place], [address], [facility] 09/12/2019 16:15:42 09/12/20 19 OT Manual Therapy completed ANIKA PÉREZ OTR/L, CHT [address] [place], [address], [facility] 09/12/2019 16:15:37 09/12/20 19 PT Paraffin Bath completed ANIKA PÉREZ, OTR/L, CHT [address] [place], [address], [facility] 09/12/2019 15:11:37 09/07/20 19 Orthotic Management; Subsequent Encounter completed ANIKA PÉREZ OTR/L, CHT [address] [place], [address], [facility] 09/07/2019 13:55:11 09/07/20 19 OT Manual Therapy completed ANIKA PÉREZ OTR/L, CHT [address] [place], [address], [facility] 09/07/2019 13:55:03 09/07/20 19 PT Hot/Cold Pack completed ANIKA PÉREZ OTR/L, CHT [address] [place], [address], [facility] 09/07/2019 13:54:30 08/31/20 19 OT Manual Therapy completed ANIKA PÉREZ OTR/L, CHT [address] [place], [address], [facility] 08/31/2019 09:27:48 08/22/20 19 Orthotic Management; Subsequent Encounter completed ANIKA PÉREZ OTR/L, CHT [address] [place], [address], [facility] 08/22/2019 10:39:20 08/16/20 19 Orthotic, HFO, Static Custom completed ANIKA PÉREZ OTR/L, CHT [address] [place], [address], [facility] 08/16/2019 16:28:25 08/16/20 19 OT Evaluation - Moderate complexity completed ANIKA PÉREZ, OTR/L, CHT [address], [place], [address], [facility] 08/16/2019 16:28:27 Imaging Results Imaging Date Name Status LastModified by Organiz ation Details LastModified Time 11/02/2019 XR, hand, 3 or more view completed [id number] [place] [address] Radiology [place] [address], [place], [address], 05/22/2022 03:50:52 Procedure Notes None recorded. Medical Equipment None Reported. Allergies No known drug allergies Medications Name Sig Start Date Stop Date Status Note LastModified by Organization Details LastModified Time Keflex 500 mg capsule Take 2 capsules twice a day by oral route for 5 days. 08/22 completed Not Available Not Available Not Available tramadol 50 mg tablet TAKE 1 TABL PO Q 4-6 HRS PRN FOR UNCONTROL LED PAIN 08/31 completed Not Available Not Available Not Available meloxicam 7.5 mg tablet TAKE 1 TABLE PO QD WITH FOOD REGARDLES S OF PAIN LEVEL FOR 1 WEEK. THEN TAKE 1 TABLET PO QD ONLY PRN FOR PAIN RELIEF THEREAFTE R 08/31 completed Not Available Not Available Not Available simvastatin 20 mg tablet Take 1 tablet every day by oral route. active Not Available Not Available No t Available Neurontin 100 mg capsule TAKE 1 CAPSULE PO QHS FOR 1 WEEK 08/22 completed Not Available Not Available Not Available ranitidine 150 mg tablet Take 1 tablet twice a day by oral route. active Not Available Not Available No t Available escitalopra m 20 mg tablet Take 1 tablet every day by oral route. active Not Available Not Available No t Available Aspir-81 active Not Available Not Avai lable Not Available montelukast active Not Available Not A vailable Not Available Prolia active Not Available Not Availa ble Not Available Vitals Date Recorded Body height Body mass index (BMI) Body weight Systolic blood pressure Diastolic blood pressure Provider Name and Address Organization Details Last Updated DateTime 12/14/2019 160.02 cm 22.9 kg/m2 78642.42 g 122 mm[Hg] 74 mm[Hg] Jaquelin Campos [facility] 0 09:51:04 Social History Question Answer Notes LastModified by Organizat ion Details LastModified Time Tobacco Smoking Status Current Every Day Smoker Gracia Bliss [facility] 08/12/2019 08:11:35 What Is Your Level Of Alcohol Consumption? None Information not available 08/12/2019 Are You Currently Employed? No [email or web address] Information not available 09/21/2019 What Is Your Occupation? Retired Information not available 08/12/2019 Which Of Your Hands Is Dominant? Right Information not available 08/12/2019 Marital Status Informatio n not available 08/12/2019 How Much Tobacco Do You Smoke? 1 PPD Information not available 08/12/2019 Do You Use Any Illicit Or Recreational Drugs? No Information not available 08/12/2019 Sex: Unknown Functional Status None recorded. Mental Status None recorded. Family History Relationship Description Onset Age of this Age Resolved Age Notes LastModified by Organization Details LastModified Time Father No current problems or disability Not available 08/12 08:11:20 Mother No current problems or disability Not available 08/12 08:11:20 Medical History Condition Response Allergies/Hayfever Y Other N Gout N Anxiety/Depression Y Thyroid Disease N Heart Conditions N Kidney Stones N Hernia N Migraines N COPD N Glaucoma N Pneumonia N Skin Problems N Immune System Disorder N Anesthesia Complications N Heart Attack (AZ) N Mental Illness N Neurological Problems N Diabetes N Rheumatic Fever N Bleeding Disorder N Arthritis N Seizures/Epilepsy N Blood Clot N Tuberculosis N Genetic Disorder N AIDS/HIV N Cancer N Stroke N Asthma N Blood Thinners Y Alcohol Overuse/Alcohol Abuse N Sleep Apnea N High Cholesterol Y Liver Disease N Included as Review of Systems Y Hypertension Y Osteoporosis N Kidney Disease N Gynecological HistoryNo gynecological history recorded. Obstetrics History GPAL:G 0 P 0 0 0 0 Past Encounters Encounter ID Performer Location Encounter Start Date Encounter Closed Date Diagnosis/Indication Diagnosis SNOMED-CT Code Diagnosis ICD10 Code Diagnosis Note [id number] [facility] [place] [address] [place] [address] 08/12/2019 08:04:49 08/12/2019 09:26:59 Fracture of proximal phalanx of finger 578768623 S62.617B Open. I&D, fixation with pinning versus ORIF [id number] SURGERY SCHEDULE [address] [place] [address] 08/12/2019 10:26:40 08/12/2019 10:29:46 [id number] ANIKA PÉREZ OTR/L, CHT PHYSICAL THERAPY / HAND THERAPY [facility] [place] [address] 08/16/2019 13:39:34 08/17/2019 09:49:02 Fracture of proximal phalanx of finger [id number] S62.617D [id number] [facility] [place] [address] 08/22/2019 08:54:18 08/22/2019 14:27:00 Fracture of proximal phalanx of finger [id number] S62.617D doing well status post irrigation and debridemen t with closed reduction and pinning left small finger proximal phalanx fracture [id number] ANIKA PÉREZ OTR/L, CHT [facility] [address] 08/22/2019 08:54:47 08/22/2019 10:55:14 Fracture of proximal phalanx of finger [id number] S62.617D [id number] [place] [address] 08/31/2019 08:27:30 08/31/2019 10:08:30 Fracture of proximal phalanx of finger 459023570 S62.617D Doing well so far but concerned about taking out the pins too early. One more week, x-rays, then pin removal. Therapy at that point. [id number] CARLA SANTOS/L, CHT PHYSICAL THERAPY / HAND THERAPY [facility] [address] [place] [address] 08/31/2019 09:01:05 08/31/2019 13:16:32 Fracture of proximal phalanx of finger [id number] S62.617D [id number] [facility] [place] [address] [place] [address] 09/07/2019 09:38:49 09/07/2019 14:12:06 Fracture of proximal phalanx of finger 376929983 S62.617D Pins out today, active range of motion follow-up 2 weeks [id number] CARLA SANTOS/L, CHT PHYSICAL THERAPY / HAND THERAPY [place] [address] [place] [facility] 09/07/2019 11:00:51 09/08/2019 08:21:26 Fracture of proximal phalanx of finger [id number] S62.617D [id number] CARLA SANTOS/Pal, T PHYSICAL THERAPY / HAND THERAPY [place] [address] [place] [address] 09/12/2019 14:53:38 09/13/2019 13:19:00 Fracture of proximal phalanx of finger [id number] S62.617D [id number] CARLA SANTOS/Pal, CHT PHYSICAL THERAPY / HAND THERAPY [place] [address] [place] [address] 09/16/2019 08:30:28 09/16/2019 13:26:38 Fracture of proximal phalanx of finger [id number] S62.617D [id number] CARLA SANTOS/Pal, T PHYSICAL THERAPY / HAND THERAPY [place] [address] [place] [address] 09/21/2019 09:35:10 09/21/2019 14:44:29 Fracture of proximal phalanx of finger [id number] S62.617D [id number] [facility] [place] [address] [place] [address] 09/21/2019 09:37:05 09/21/2019 12:00:28 Fracture of proximal phalanx of finger 725708753 S62.617D 6 weeks postop, some shortening and some extensor tendon adhesions leading to a 20?? extensor lag, she is working on this and will progress as tolerated with therapy, follow-up 6 weeks final x-ray [id number] ANIKA K ELISA, OTR/L, CHT PHYSICAL THERAPY / HAND THERAPY [place] [address] [place] [address] 09/27/2019 13:28:12 09/27/2019 15:15:56 Fracture of proximal phalanx of finger [id number] S62.617D [id number] ANIKA PÉREZ OTR/L, CHT PHYSICAL THERAPY / HAND THERAPY [place] [address] [place] [address] 10/03/2019 10:49:03 10/03/2019 13:07:18 Fracture of proximal phalanx of finger [id number] S62.617D [id number] ANIKA PÉREZ OTR/L, T PHYSICAL THERAPY / HAND THERAPY [place] [address] [place] [address] 10/10/2019 09:18:12 10/10/2019 11:26:31 Fracture of proximal phalanx of finger [id number] S62.617D [id number] ANIKA PÉREZ OTR/L, T PHYSICAL THERAPY / HAND THERAPY [place] [address] [place] [address] 10/25/2019 12:22:45 10/25/2019 16:11:07 Fracture of proximal phalanx of finger [id number] S62.617D [id number] ANIKA PÉREZ OTR/L, T PHYSICAL THERAPY / HAND THERAPY [place] [address] [place] [place] [address] 10/28/2019 10:09:02 10/28/2019 13:15:07 Fracture of proximal phalanx of finger [id number] S62.617D [id number] ANIKA PÉREZ OTR/L, T PHYSICAL THERAPY / HAND THERAPY [place] [address] [place] [address] [address] 11/02/2019 08:15:01 11/02/2019 09:35:47 Fracture of proximal phalanx of finger [id number] S62.617D [id number] [facility] [place] [address] [place] [address] 11/02/2019 08:16:16 11/02/2019 11:23:57 Fracture of proximal phalanx of finger [id number] S62.617D X-ray healed. She has a little bit of extensor tendon attenuatio n, but I think given that it is her small finger she should regain normal function with gentle therapy, I agree with extension splinting at night.Foll ow-up 6 weeks final check (again) Ganglion c yst of tendon sheath 27355711 M67.40 Aspirated, can be reaspirate d if it recurs or excised [id number] ANIKA PÉREZ OTR/L, CHT PHYSICAL THERAPY / HAND THERAPY [place] [address] [place] [address] 11/14/2019 09:02:16 11/14/2019 13:10:57 Fracture of proximal phalanx of finger [id number] S62.617D [id number] CARLA SANTOS/Pal, T PHYSICAL THERAPY [facility] [address] 11/21/2019 10:08:13 11/21/2019 13:23:43 Fracture of proximal phalanx of finger [id number] S62.617D [id number] CARLA SANTOS/Pal, T PHYSICAL THERAPY / HAND THERAPY [place] [address] [place] [address] 11/30/2019 09:53:25 11/30/2019 11:11:49 Fracture of proximal phalanx of finger [id number] S62.617D [id number] CARLA SANTOS/Pal, T PHYSICAL THERAPY / HAND THERAPY [place] [address] [place] [address] 12/07/2019 10:14:53 12/07/2019 11:27:05 Fracture of proximal phalanx of finger [id number] S62.617D [id number] [facility] [place] [address] 12/14/2019 09:41:49 12/14/2019 10:22:51 Fracture of proximal phalanx of finger 858129270 S62.617D Discontinu e splint so she can work on therapy, see if the extensor tendon Function changes Ganglion c yst of tendon sheath 99017810 M67.40 Aspirated, If recurrent then excised Health Concerns Section Related Observation LastModified by Organization Detai ls LastModified Time None Recorded Concern Status LastModified by Organization Details LastModified Time None Recorded Advance Directives Directive None Recorded Payers Encounter Date Sequence Insurance Name Policy Number Policy Perea Covered Member ID Perea Member ID Guarantor Name 11/14/2019 1 [employer] (MEDICARE REPLACEMENT/A DVANTAGE - PPO) Elizabeth Templeney [id number] Elizabeth Templeney 11/21/2019 1 [employer] (MEDICARE REPLACEMENT/A DVANTAGE - PPO) Elizabeth Das [id number] Elizabeth Templeney 11/30/2019 1 [employer] (MEDICARE REPLACEMENT/A DVANTAGE - PPO) Elizabeth Templeney [id number] Elizabeth Templeney 12/07/2019 1 [employer] (MEDICARE REPLACEMENT/A DVANTAGE - PPO) Elizabeth Templeney [id number] Elizabeth Templeney 12/14/2019 1 [employer] (MEDICARE REPLACEMENT/A DVANTAGE - PPO) Elizabeth Arriola Thiago [id number] Elizabeth Templeney Notes Date Note Type Note Provider Name and Address Organization Details Recorded Time 11/14/2019 text/html Patient History: Pt reports that she still hasn't been pushing flexion, and her extension is still a bit lagging. DOI: 08-11-19 DOS: 08-12-19 Performance Deficits: Pt reports having at least 3 performance deficits that are limiting ADL and IADL functional secondary to having hand/arm surgery. ANIKA PÉREZ OTR/L, T [address] [place], [address], [facility] 11/14/2019 10:46:05 11/21/2019 text/html Patient History: Pt reports that her PIP joint feels a bit tight today. DOI: 08-11-19 DOS: 08-12-19 Performance Deficits: Pt reports having at least 3 performance deficits that are limiting ADL and IADL functional secondary to having hand/arm surgery. ANIKA PÉREZ OTR/L, CHT [address] [place], [address], [facility] 11/21/2019 11:07:50 11/30/2019 text/html Patient History: Pt reports that her PIP joint feels more straight today. DOI: 08-11-19 DOS: 08-12-19 Performance Deficits: Pt reports having at least 3 performance deficits that are limiting ADL and IADL functional secondary to having hand/arm surgery. ANIKA PÉREZ OTR/L, T [address] [place], [address], [facility] 11/30/2019 10:57:02 12/07/2019 text/html Patient History: Pt reports that her PIP joint feels more straight today. DOI: 08-11-19 DOS: 08-12-19 Performance Deficits: Pt reports having at least 3 performance deficits that are limiting ADL and IADL functional secondary to having hand/arm surgery. ANIKA PÉREZ OTR/Pal, T [address] [place], [address], [facility] 12/07/2019 11:10:10 12/14/2019 text/html Hand SurgeryRepo rted bypatient.Hand Dominance:right Location:left; SF Severity:pain level 0/10 Duration:date of injury: 08-11-2019; 16 weeks Previous Surgery:surgical procedure: (Irrigation/Debride open fracture Percutaneous fixation left small finger proximal phalanx fracture); date (08/12/2019); 16 weeks ago Work Related:no Working:retired from workNotes:Patient is here for f/u of Lt SF and ganglion cyst She reports no pain at this time. Pt feels that her ROM is improving. She has been compliant with wearing the night-time extension splint. Regarding the ganglion cyst, she notes it has not returned. JAVED ALCAZAR MD [address] [place] [address], [address], [facility] 12/14/2019 10:13:09 OBGyn Episode No OBEpisode recorded.
== END 2025-02-23 23:59 | disposition home or self-care (01) ==
LOC: RAD 08:53
PROVIDERS: PCP Internal Medicine Adolescent Medicine; Visit Provider Internal Medicine Adolescent Medicine
DX: R74.8 Abnormal levels of other serum enzymes (principal)
CPT/HCPCS: 76705